=== PATIENT | female | born 1980 | race Caucasian/White ===

== ENCOUNTER → 2017-04-06 | Outpatient (CLI) | payer OTHER ==
--- NOTE | ~2017-04-06 | EKG ---
[address] [facility] [address] ELECTROCARDIOGRAM REPORT Name: BRITTNI HEALY Room #: REG SURAJ Isabel#: [id number] Admission: 04/06/17 Attend Phys: Shanon Marcial MD Discharge: Date of : 80 Report #: [id number] THIS REPORT FOR: //name// [facility] Test Date: 2017-04-06 Test Time: 09:14:25 Pat Name: BRITTNI HEALY Department: Room: Gender: F Member Services Coordinator: wally : 1980 Requested By: Shanon Marcial Order Number: [id number] MD: Nehemiah Beebe Measurements Intervals [place] Rate: 81 P: 0 MS: 109 QRS: 34 QRSD: 98 T: 24 QT: 370 QTc: 430 Interpretive Statements Sinus rhythm Short MS interval Baseline wander in lead(s) V6 No previous ECG available for comparison Electronically Signed On 04-08-2017 13:43:47 CDT by Nehemiah Beebe [email or web address] <ELECTRONICALLY SIGNED> By: Nehemiah Beebe MD, [facility] 04/08/17 1343 [id number] 3 Nehemiah Beebe MD, FACC /EPI
== END ==
LOC: CV 08:53
DX: E11.9 Type 2 diabetes mellitus without complications (principal)